=== PATIENT | female | born 1990 | race Caucasian/White ===

== ENCOUNTER → 2025-03-11 15:23 | Outpatient (CLI) | payer OTHER, SELFPAY ==
--- NOTE | 2025-03-11 15:26 | DI.RAD.S_ITS ---
PROCEDURE: XR ANKLE RT MIN 3V INDICATIONS: Right foot pain after fall TECHNIQUE: 3 views of the ankle were acquired. COMPARISON: None. FINDINGS: 8 mm calcific density adjacent to the cuboid commonly represents variant os cuboideum however in the setting of trauma avulsion fracture not excluded. Correlate for point tenderness lateral aspect of the foot adjacent to the cuboid. Mild degenerative changes at the tibiotalar, talonavicular and calcaneocuboid joints with mild joint space narrowing. No radiographic evidence of dislocation or high attenuation soft tissue foreign body. IMPRESSION: Os cuboideum variant versus small avulsion fracture as discussed above. Mild degenerative changes. Dictated by: Tevin Bright M.D. on 03/11/2025 at 21:27 Approved by: Tevin Bright M.D. on 03/11/2025 at 21:31
--- NOTE | 2025-03-11 15:26 | DI.RAD.S_ITS ---
PROCEDURE: XR FOOT RT MIN 3V INDICATIONS: Right foot pain after fall TECHNIQUE: 3 views of the foot were acquired. COMPARISON: None. FINDINGS: 8 mm calcific density adjacent to the cuboid commonly represents variant os cuboideum however in the setting of trauma avulsion fracture could have a similar appearance. Mild degenerative changes at the tibiotalar, talonavicular and calcaneocuboid and 1st metatarsophalangeal joints. Well corticated 6 mm os navicularis accessory ossicle variant is noted. No radiographic evidence of dislocation or high attenuation foreign body. IMPRESSION: Os cuboideum variant versus avulsion fracture as discussed above. If symptoms persist or worsen, or there is high clinical suspicion of right foot CT or abnormality, MRI could be performed. Dictated by: Tevin Bright M.D. on 03/11/2025 at 21:31 Approved by: Tevin Bright M.D. on 03/11/2025 at 21:36
== END ==
PROVIDERS: Referring Provider Nurse Practitioner Family; Visit Provider Nurse Practitioner Family
DX: S96.911A Strain of unspecified muscle and tendon at ankle and foot level, right foot, initial encounter (principal); M19.071 Primary osteoarthritis, right ankle and foot; R93.6 Abnormal findings on diagnostic imaging of limbs
CPT/HCPCS: 73610; 73630